=== PATIENT | male | born 1995 | race Two or more races ===

== ENCOUNTER 2024-03-02 22:33 | Emergency (ER) | payer SELFPAY ==
[2024-03-02 22:37] VITALS: BP 134/90; PULSE 105; RESP 19; TEMP 37.1; O2SAT 96
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
== END 2024-03-02 23:25 ==
LOC: SERX 23:31
PROVIDERS: Emergency Provider Emergency Medicine
DX: Z02.89 Encounter for other administrative examinations (principal); Z04.1 Encounter for examination and observation following transport accident
CPT/HCPCS: 99281